=== PATIENT | male | born 1950 | race Caucasian/White ===

== ENCOUNTER → 2017-06-15 | Outpatient (CLI) | payer MEDICARE, OTHER ==
[2005-08-12 14:57] VITALS: TEMP 98.4
[~2017-06-15] MED LIST: ASPI81EC; CELEXA20 MG PO; OMEGA 31000 MG PO; PRILOSEC OTC20 MG PO; THERAPEUTIC VIT1 CAP PO
== END ==
LOC: COL.VAS 09:49
DX: R55 Syncope and collapse (principal)

== ENCOUNTER → 2021-08-21 | Outpatient (CLI) | payer MEDICARE, OTHER ==
[2005-08-12 14:57] VITALS: TEMP 98.4
== END ==
LOC: COL.RAD 07:26
DX: Z13.6 Encounter for screening for cardiovascular disorders (principal)